=== PATIENT | female | born 1970 | race Caucasian/White ===

== ENCOUNTER 2021-05-28 11:01 | Emergency (ER) | payer MEDICAID ==
[~2021-05-28] VITALS: Ht 165.1 cm; Wt 84.5 kg
[2021-05-28] MEDS ORDERED: IBUPROFEN 800MG TABLET PO ONE (12:15)
[2021-05-28] MEDS ORDERED: NAPR-1176 MT (12:15)
[2021-05-28 12:37] VITALS: BP 137/96
== END 2021-05-28 12:39 | disposition home or self-care (01) ==
LOC: ER 11:18
DX: M54.5 Low back pain (principal); F31.9 Bipolar disorder, unspecified; E03.9 Hypothyroidism, unspecified
CPT/HCPCS: 99282